=== PATIENT | male | born 1990 | race Caucasian/White ===

== ENCOUNTER 2017-02-10 13:14 | Emergency (ER) | payer OTHER ==
[~2017-02-10] VITALS: Ht 175.3 cm; Wt 72.6 kg
[2017-02-10 13:18] VITALS: BP 149/85
== END 2017-02-10 13:50 | disposition home or self-care (01) ==
LOC: ER 13:17
DX: K42.9 Umbilical hernia without obstruction or gangrene (principal); F32.9 Major depressive disorder, single episode, unspecified; F90.9 Attention-deficit hyperactivity disorder, unspecified type
CPT/HCPCS: 99281; A4606; Z7610; Z7502

== ENCOUNTER 2017-02-14 15:49 | Emergency (ER) | payer OTHER ==
[~2017-02-14] VITALS: Ht 175.3 cm; Wt 72.6 kg
[2017-02-14 16:17] VITALS: BP 134/68
== END 2017-02-14 17:13 | disposition home or self-care (01) ==
LOC: ER 15:52
DX: K42.9 Umbilical hernia without obstruction or gangrene (principal); F32.9 Major depressive disorder, single episode, unspecified; F90.9 Attention-deficit hyperactivity disorder, unspecified type; F10.10 Alcohol abuse, uncomplicated
CPT/HCPCS: 99283; A4606; Z7610

== ENCOUNTER 2017-04-03 19:12 | Emergency (ER) | payer OTHER ==
[~2017-04-03] VITALS: Ht 177.8 cm; Wt 72.6 kg
--- NOTE | 2017-04-03 19:30 | NUR ---
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
[2017-04-03] MEDS ORDERED: LIDOCAINE 1% INJ 50 ML MDV IJ ONE ×2 (19:36→20:00)
[2017-04-03 19:57] VITALS: BP 134/84
== END 2017-04-03 19:57 | disposition home or self-care (01) ==
LOC: ER 19:16
DX: S31.010A Laceration without foreign body of lower back and pelvis without penetration into retroperitoneum, initial encounter (principal); F32.9 Major depressive disorder, single episode, unspecified; F90.9 Attention-deficit hyperactivity disorder, unspecified type; W22.8XXA Striking against or struck by other objects, initial encounter; Y93.89 Activity, other specified; Y92.89 Other specified places as the place of occurrence of the external cause; Y99.8 Other external cause status
CPT/HCPCS: 12002; 99283; A4606; A6402; A6403; J3490; Z7610

== ENCOUNTER 2018-04-25 03:31 | Emergency (ER) | END 2018-04-25 04:04 | disposition home or self-care (01) | DX: J11.1 Influenza due to unidentified influenza virus with other respiratory manifestations (principal); F32.9 Major depressive disorder, single episode, unspecified; F10.10 Alcohol abuse, uncomplicated; Y90.9 Presence of alcohol in blood, level not specified ==